=== PATIENT | female | born 1995 | race Caucasian/White ===

== ENCOUNTER 2024-08-04 22:24 | Emergency (ER) | payer BC ==
[~2024-08-04] VITALS: Ht 167.6 cm; Wt 69.0 kg
[2024-08-04 22:35] VITALS: O2SAT 100
[2024-08-04] MEDS: BACITRACIN ZINC OINT UDPKT TOP ONE (23:30)
[2024-08-04] MEDS: LIDOCAINE HCL/PF 1% 10 MG/ML 5ML VIAL INFIL ONE (23:30)
[2024-08-05] MEDS: ACETAMINOPHEN 500MG TABLET PO ONE (00:09)
[2024-08-05] MEDS: TETANUS, DIPHTHERIA, PERTUSSIS VAC/PF 0.5ML (>10YR OLD) IM ONE (00:10)
[2024-08-05] MEDS ORDERED: BO1 TP (01:19)
[2024-08-05] MEDS ORDERED: IBUP-2029 MT (01:19)
[2024-08-05 01:33] VITALS: BP 124/55; PULSE 100; RESP 20; TEMP 36.8; O2SAT 100
== END 2024-08-05 01:40 | disposition home or self-care (01) ==
LOC: ER 22:24
DX: S01.81XA Laceration without foreign body of other part of head, initial encounter (principal); W19.XXXA Unspecified fall, initial encounter; Y93.89 Activity, other specified; Y92.89 Other specified places as the place of occurrence of the external cause; Y99.8 Other external cause status
CPT/HCPCS: 81025; 70450; 72125; 90715; 12011; 99285; 90471; J2003; Z7610